=== PATIENT | male | born 1945 | race Caucasian/White ===

== ENCOUNTER 2023-07-21 18:33 | Emergency (ER) | payer MEDICARE, SELFPAY ==
--- NOTE | ~2023-07-21 | XR_ITS ---
EXAMINATION: XR thoracic spine 3V, XR hip RT 2V w AP pelvis, XR lumbar spine 2-3V DATE: 07/21/2023 19:41 (accession [id number]), 07/21/2023 19:41 (accession [id number]), 07/21 19:40 (accession [id number]) INDICATION: Right hip and back pain post fall TECHNIQUE: 1. One AP, lateral and lateral swimmer's views of the thoracic spine were obtained. 2. AP, lateral and coned-down lateral lumbosacral views of the lumbar spine were obtained. 3. AP view of the pelvis and AP and frog-leg lateral views of the right hip were obtained. COMPARISON: None. FINDINGS: Thoracic and lumbar spine: Ankylosis with bridging osteophytes throughout the spine beginning in at least the mid cervical spine and extending to the sacrum which could be related to either diffuse idiopathic skeletal hyperostosi s (DISH) or ankylosing spondylitis. There is bone graft cage at the fused L5-S1 disc space and a lef t-sided vertical hong and pedicle screw fixation at L4-L5. Alignment is normal. No fracture identified . 3 calcifications measuring up to 5 mm projecting over the left kidney suspicious for nephrolithiasi s. Pelvis and right hip: Alignment is normal. There is suggestion of partial ankylosis at the bilateral sacroiliac joints. Sac ral arches are intact. No fracture. Mild osteoarthritis at the bilateral hips. A few phleboliths in t he pelvis. IMPRESSION: 1. 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 No evident fracture. 2. Mild bilateral hip osteoarthritis. No acute osseous abnormality in the pelvis. 3. Likely left nephrolithiasis. Reviewed, dictated and finalized at location A. IMPRESSION: 1. 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 No evident fracture. 2. Mild bilateral hip osteoarthritis. No acute osseous abnormality in the pelvi s. 3. Likely left nephrolithiasis. IMPRESSION: 1. 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 No evident fracture. 2. Mild bilateral hip osteoarthritis. No acute osseous abnormality in the pelvi s. 3. Likely left nephrolithiasis.
[2023-07-21 18:39] VITALS: BP 157/89; PULSE 76; RESP 17; TEMP 37.1; O2SAT 98
--- NOTE | 2023-07-21 18:39 | PC.NURSE ---
patient states he is on metformin and atorvastatin daily but unsure of mg's
[2023-07-21] MEDS: ACETAMINOPHEN 500 MG TABLET 1000 MG PO (19:21)
--- NOTE | 2023-07-21 19:25 | ED.GENADULT ---
HPI - General Adult General Chief complaint: Fall Stated complaint: fall Time Seen by Provider: 07/21/23 19:05 History of Present Illness HPI narrative: Mac presented to the ED after a fall off of the first step of a ladder. He thought he was on the last rung but missed it and fell on his right hip and back. He does not believe he his his head or neck. He denies any pain in his neck or head. He is having pain in his right hip and mid back that is worse while standing. NO loss of bowel/bladder control, numbness, tingling or weakness in the lower extremities. Related Data Allergies Allergy/AdvReac Type Severity Reaction Status Date / Time No Known Allergies Allergy Verified 07/21/23 18:38 Review of Systems Review of Systems: All systems reviewed & are unremarkable except as noted in HPI and below Exam Const: General: healthy appearing and no acute distress Nutritional Appearance: well nourished Orientation/consciousness: patient oriented x3 HENMT: Head: normal to inspection Ears: external ears normal Eyes: Conjunctivae: conjunctivae normal Pupils: Equal, round and reactive pupils present Neck: Neck: normal visual inspection Other: No midline tenderness. Normal active ROM in the neck without any pain. Chest: Chest palpation & inspection: normal inspection of the chest Resp: Effort & Inspection: normal respiratory effort Cardio: Rate: regular rate Rhythm: regular rhythm Back/Spine/Pelvis: Other: No tenderness of the midline spine. No bruising or deformity. Skin: General skin exam: normal color Neuro: General: patient oriented x3 and moves all extremities Cranial nerves: Yes Nystagmus not present Extrem: General: normal to inspection Psych: Mental Status: mental status grossly normal Affect: normal affect Course Course Emergency Course: Ordered APAP for pain and radiographs EXAMINATION: XR thoracic spine 3V, XR hip RT 2V w AP pelvis, XR lumbar spine 2-3V DATE: 07/21/2023 19:41 (accession [id number]), 07/21/2023 19:41 (accession [id number]), 07/21/2023 19:40 (accession [id number]) INDICATION: Right hip and back pain post fall TECHNIQUE: 1. One AP, lateral and lateral swimmer's views of the thoracic spine were obtained. 2. AP, lateral and coned-down lateral lumbosacral views of the lumbar spine were obtained. 3. AP view of the pelvis and AP and frog-leg lateral views of the right hip were obtained. COMPARISON: None. FINDINGS: Thoracic and lumbar spine: Ankylosis with bridging osteophytes throughout the spine beginning in at least the mid cervical spine and extending to the sacrum which could be related to either diffuse idiopathic skeletal hyperostosis (DISH) or ankylosing spondylitis.? There is bone graft cage at the fused L5-S1 disc space and a left-sided vertical hong and pedicle screw fixation at L4-L5. Alignment is normal. No fracture identified. 3 calcifications measuring up to 5 mm projecting over the left kidney suspicious for nephrolithiasis. Pelvis and right hip: Alignment is normal. There is suggestion of partial ankylosis at the bilateral sacroiliac joints. Sacral arches are intact. No fracture. Mild osteoarthritis at the bilateral hips. A few phleboliths in the pelvis. IMPRESSION: 1. 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 No evident fracture. 2. Mild bilateral hip osteoarthritis. No acute osseous abnormality in the pelvis. 3. Likely left nephrolithiasis. Vital Signs Vital signs: Vital Signs Temperature 98.8 F 07/21/23 18:39 Pulse Rate 76 07/21/23 18:39 Respiratory Rate 17 07/21/23 18:39 Blood Pressure 157/89 H 07/21/23 18:39 Pulse Oximetry 98 07/21/23 18:39 Oxygen Delivery Room Air 07/21/23 18:39 Temperature 98.8 F 07/21/23 18:39 Pulse Rate 76 07/21/23 18:39 Respiratory Rate 17 07/21/23 18:39 Blood Pr
[2023-07-21 20:19] VITALS: BP 145/93; PULSE 70; RESP 16; TEMP 36.4; O2SAT 98
== END 2023-07-21 20:20 | disposition home or self-care (01) ==
PROVIDERS: Emergency Provider Family Medicine; PCP Family Medicine
DX: M43.20 Fusion of spine, site unspecified (principal); W11.XXXA Fall on and from ladder, initial encounter
CPT/HCPCS: 72072; 72100; 73502; 99284

== ENCOUNTER 2023-12-08 09:46 | Outpatient (CLI) | payer MEDICARE, SELFPAY ==
[2023-12-08 13:18] LABS: Hemoglobin A1C 6.5 % (<5.7)
[2023-12-08 13:35] LABS: Creatinine Urine 122.58 mg/dL (40-278); MALB Creatinine Ratio 10.6 mg/g (0-30); Microalbumin Urine Random < 13.0 mg/L
[2023-12-08 13:47] LABS: Alanine Aminotransferase 44 U/L (16-63); Alkaline Phosphatase 105 U/L (46-116); Anion Gap 6 mmol/L (8-16); Aspartate Amino Transferase 16 U/L (15-37); Bilirubin,Total 0.9 mg/dL (0.00-1.00); Blood Urea Nitrogen 11 mg/dL (7-18); Calcium 9.1 mg/dL (8.5-10.1); Carbon Dioxide 32 mmol/L (21-32); Chloride 102 mmol/L (98-108); Cholesterol 103 mg/dL (0-200); Estimated Glomerular Filt Rate > 60; Glucose 138 mg/dL (70-99); HDL Direct 36 mg/dL (40-60); LDL Cholesterol Calculated 47 mg/dL (<130); Osmolality Calculated 291 mOsm/kg (285-295); Potassium 4.3 mmol/L (3.5-5.1); Sodium 140 mmol/L (136-145); Total Protein 7.4 g/dL (6.4-8.2); Triglycerides 100 mg/dL (0-150)
== END 2023-12-08 09:47 | disposition home or self-care (01) ==
LOC: CHSLAB 09:47
PROVIDERS: PCP Family Medicine; Visit Provider Family Medicine
DX: E11.9 Type 2 diabetes mellitus without complications (principal)
CPT/HCPCS: 36415; 80053; 80061; 82043; 83036

== ENCOUNTER 2024-04-29 20:40 | Emergency (ER) | payer MEDICARE, SELFPAY ==
[2024-04-29] VITALS (18 sets, daily range): BP systolic 108–140; BP diastolic 52–97; PULSE 94–152; RESP 11–20; TEMP 36.2–36.7; O2SAT 94–97
--- NOTE | ~2024-04-29 | XR_ITS ---
EXAMINATION: XR chest 1V portable DATE: 04/29/2024 21:02 INDICATION: Chest pain. Tachycardia. TECHNIQUE: A single frontal view of the chest was obtained. COMPARISON: None. FINDINGS: There is mild atelectasis in left lower lung zone. No pleural effusion or pneumothorax. The heart size is normal. IMPRESSION: 1. Mild atelectasis in left lower lung zone. Reviewed, dictated and finalized at location E.
--- NOTE | 2024-04-29 20:44 | ECG_ITS ---
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 Measurements Intervals [place] Rate: 146 P: 0 AR: 0 QRS: 10 QRSD: 76 T: 68 QT: 263 QTc: 411 Interpretive Statements ATRIAL FIBRILLATION WITH RAPID VENTRICULAR RESPONSE NONSPECIFIC ST & T-WAVE ABNORMALITY ABNORMAL RHYTHM ECG No previous ECG available for comparison Electronically Signed On 04-30-2024 07:37:55 CDT by Manjeet Otero M.D.
--- NOTE | 2024-04-29 20:46 | ED.ARRPALP ---
HPI - Arrhythmia/Palpitations General Chief Complaint: Arrhythmia/Palpitations Stated Complaint: Palpitations Time Seen by Provider: 04/29/24 20:44 Source: patient and family Mode of arrival: ambulatory Limitations: no limitations History of Present Illness HPI narrative: Patient is a 79-year-old male with some palpitations all day today. He is working in the yard and started to have the palpitations. MD complaint: palpitations and irregular heart beat Onset (ago): day(s) (1) Duration: constant Severity: moderate Context: occurred during exertion Arrhythmia history: other ( None) Associated symptoms: other ( lightheaded and queasy GI symptoms today) Related Data Home Medications Medication Instructions Recorded Confirmed timolol 0.25 % eye drops 1 drp EACH EYE Q12H 12/08/23 04/29/24 tirzepatide 5 mg/0.5 mL 5 mg subcut WEEKLY 04/29/24 04/29/24 subcutaneous pen injector (Mounjaro) Allergies Allergy/AdvReac Type Severity Reaction Status Date / Time No Known Allergies Allergy Verified 12/08/23 07:32 Review of Systems Review of Systems: All systems reviewed & are unremarkable except as noted in HPI and below Constitutional: Constitutional: Reports no additional constitutional complaints Eyes: Eyes: Reports no additional eye complaints ENT: Reports system reviewed and no additional complaints, except as documented Cardiovascular: Cardiovascular: Reports no additional cardiovascular complaints Respiratory: Respiratory: Reports no additional respiratory complaints Gastrointestinal: Gastrointestinal: Reports no additional gastrointestinal complaints Genitourinary: Genitourinary: Reports no additional male genitourinary complaints Musculoskeletal: Musculoskeletal: Reports no additional musculoskeletal complaints Integumentary/Breasts: Skin/Breast: Reports system reviewed and no additional complaints, except as docu Neurologic: Reports system reviewed and no additional complaints, except as documented Psychiatric: Psychiatric: Reports no additional psychiatric complaints Endocrine: Endocrine: Reports no additional endocrine complaints Hematologic/Lymphatic: Hematologic/Lymphatic: Reports no additional hematologic/lymphatic complaints Allergic/Immunologic: Allergic/Immunologic: Reports no additional allergic/immunologic complaints [facility] Past Medical History Medical History Diabetes type 2, controlled Surgical History Surgical History Previous back surgery stenosis and blow disc Family History Family History Mother Glaucoma Lung cancer Father Glaucoma Acute myocardial infarction Social History Social History Smoking status: Never smoker Alcohol intake: never Substance use: never Exam Const: General: healthy appearing Nutritional Appearance: well nourished Orientation/consciousness: patient oriented x3 HENMT: Head: normal to inspection Ears: external ears normal Face/Nose/Sinus: Normal external nose present Eyes: Conjunctivae: conjunctivae normal Pupils: Equal, round and reactive pupils present EOM: EOMs intact bilaterally Neck: Neck: normal visual inspection Chest: Chest palpation & inspection: normal inspection of the chest Resp: Effort & Inspection: normal respiratory effort and not labored Auscultation: clear to auscultation bilaterally Cardio: Rate: abnormal rate, not bradycardic and tachycardic Rhythm: abnormal rhythm and abnormal rhythm Heart sounds: no murmurs GI: Inspection: non-distended GI Palp: Yes Soft to palpation, No Tenderness to palpation present (GI) and No Guarding due to palpation present (GI) Auscultation: normal bowel sounds : General: Yes bladder normal to palpation Back/Spine/Pelvis: Back: no CVA tenderness Ski
[2024-04-29] MEDS: dilTIAZem HCl INJ 25 MG/5 ML VIAL 10 MG IV PUSH (21:09)
--- NOTE | 2024-04-29 21:16 | PC.NURSE ---
ERP spoke c pt about hx and new onset of Afib dx. Pt agreeable to transfer to [place] if needed.
[2024-04-29 21:17] LABS: Basophils Absolute Auto 0.03 K/mm3 (0.00-0.10); Basophils Percent Auto 0.5 % (0.0-1.0); Eosinophils Absolute Auto 0.11 K/mm3 (0.02-0.50); Eosinophils Percent Auto 1.8 % (1.0-6.0); Hematocrit 45.4 % (37.0-46.0); Hemoglobin 15.7 g/dL (12.4-15.3); Immature Granulocyte Absolute 0.02 K/mm3 (0.00-0.00); Immature Granulocyte Percent A 0.3 % (0.0-0.0); Lymphocytes Absolute Auto 1.81 K/mm3 (1.10-4.50); Mean Corpuscular HGB Conc 34.6 g/dL (32-36); Mean Corpuscular Hemoglobin 34.8 pg (27.0-31.0); Mean Corpuscular Volume 100.7 fL (78.0-102.0); Mean Platelet Volume 9.7 fl (8.7-11.0); Monocytes Absolute Auto 0.56 K/mm3 (0.10-0.90); Monocytes Percent Auto 9.3 % (2.0-11.0); Neutrophils Percent Auto 58.1 % (50.0-70.0); Platelet Count Result 209 K/mm3 (150-420); Red Blood Count 4.51 M/mm3 (4.70-6.10); Red Cell Distribution Width 12.3 % (11.6-14.4)
[2024-04-29 21:30] LABS: INR 0.9; Prothrombin Time 10.4 Seconds (9.50-12.1)
[2024-04-29 21:38] LABS: Alanine Aminotransferase 29 U/L (16-63); Albumin Level 3.7 g/dL (3.4-5.0); Alkaline Phosphatase 102 U/L (46-116); Anion Gap 10 mmol/L (4-12); Aspartate Amino Transferase 19 U/L (15-37); Bilirubin,Total 0.6 mg/dL (0.00-1.00); Blood Urea Nitrogen 16 mg/dL (7-18); Calcium 8.8 mg/dL (8.5-10.1); Carbon Dioxide 27 mmol/L (21-32); Chloride 104 mmol/L (98-108); Estimated CRCL calculation 58 ml/min; Estimated Glomerular Filt Rate > 60; Glucose 213 mg/dL (70-99); NT Pro B Type Natriuretic Pept 347 pg/mL (0-450); Osmolality Calculated 299 mOsm/kg (285-295); Potassium 3.9 mmol/L (3.5-5.1); Sodium 141 mmol/L (136-145); Total Protein 7.2 g/dL (6.4-8.2)
[2024-04-29] MEDS: ENOXAPARIN 100 MG/ML SYRINGE SUB-Q (22:24)
[2024-04-29] MEDS: METOPROLOL TARTRATE 50 MG TAB 12.5 MG PO (22:42)
--- NOTE | 2024-04-29 23:01 | PC.NURSE ---
Pts daughter Yelena contact and given Rm assignment at [facility] per pt request. Pt remains stable, VSS, Monitor continues to show Afib, HR 108.
== END 2024-04-29 23:20 | disposition short-term general hospital (02) ==
PROVIDERS: Emergency Provider Emergency Medicine; PCP Family Medicine
DX: I48.91 Unspecified atrial fibrillation (principal); R00.2 Palpitations; E11.9 Type 2 diabetes mellitus without complications; Z79.85 Long-term (current) use of injectable non-insulin antidiabetic drugs
CPT/HCPCS: 36415; 71045; 80053; 83735; 83880; 84484; 85025; 85610; 85730; 93005; 96372; 96374; 99285; A9270; J1650

== ENCOUNTER 2024-04-30 00:13 | Observation (INO) | payer MEDICARE, SELFPAY ==
--- NOTE | 2024-04-29 23:52 | PC.NURSE ---
This patient, Mac Dejesus, was admitted to -. Patient/family oriented to hospital policies and general routines including ID bracelet, bed and alarms, visiting hours, pain management, procedures, bathroom and other care routines, personal items, smoking policy, room service/diet, and visiting hours. Information on how to activate the Rapid Response Team has been discussed. Patient/Family are encouraged to report perceived risks to care and to ask questions if they do not understand what they are told or what they should do.
[2024-04-30] VITALS (22 sets, daily range): BP systolic 100–117; BP diastolic 56–66; PULSE 68–111; RESP 15–19; TEMP 36.3–37; O2SAT 95–98; BMI 33.5
--- NOTE | 2024-04-30 | ECHO_ITS ---
Patient Info Name: Mac Dejesus Age: 79 years : 1945 Gender: Male Ht: 69 in Wt: 226 lbs BSA: 2.27 m2 HR: 68 bpm BP: 103 / 64 mmHg Heart Rhythm: Atrial Fibrillation Technical Quality: Fair Exam Date: 04/30/2024 8:19 AM Exam Location: Echo Lab Patient Status: Outpatient Admit Date: 04/30/2024 Staff Ordering Physician: Bebe Vega DO Custodial Foreman: Jannie Lynne RDCS Attending Provider: Bebe Vega DO Referring Physician: Gary CRUZ; Exam Type: CA echo dop color flow w con Study Info Indications - afib Complete two-dimensional, color flow and Doppler transthoracic echocardiogram is performed with contrast to opacify the left ventricle and to improve the deliniation of the left ventricle endocardial borders. Contrast/Agitated Saline Contrast/Ag. Saline: Definity Amount: 2.00 ml Administered By: Jannie Lynne RDCS Existing IV Access: Yes IV Access Condition: patent with no signs of infiltration Summary 1. Definity contrast injected to improve visualization. 2. Normal left ventricular size with good systolic function ejection fraction 60-65%. 3. Left atrial enlarged. 4. No significant valvular dysfunction. 5. Atrial fibrillation. Left Ventricle Left ventricular chamber dimension is normal. Left ventricular systolic function is normal, estimated at 60-65%. Right Ventricle Right ventricular chamber dimension is normal. Left Atria Left atrial chamber dimension is moderately enlarged. Right Atria Right atrial chamber dimension is mildly enlarged. Aortic Valve The aortic valve is trileaflet. There is mild aortic valve sclerosis. Pulmonic Valve The pulmonic valve is not well visualized. Mitral Valve The mitral valve has normal leaflets. Tricuspid Valve The tricuspid valve leaflets are normal. Pericardium/Pleural The pericardium appears normal. Aorta The aortic root size at the sinus of Valsalva is normal. Left Ventricular Outflow Tract Name Value Normal LVOT 2D LVOT Diameter 2.03 cm LVOT Doppler LVOT Peak Gradient 4 mmHg LVOT Mean Gradient 2 mmHg LVOT VTI 18.56 cm LVOT VTI/AV VTI Ratio 0.95 LVOT Stroke Volume 60.05 ml LVOT CO 4.56 l/min LVOT CI 2.01 L/min/m2 Pulmonic Valve Name Value Normal RVOT Doppler RVOT Peak Gradient 1 mmHg PV Doppler PV Peak Gradient 2 mmHg Mitral Valve Name Value Normal MV Doppler
--- NOTE | 2024-04-30 00:22 | PM.IMHP ---
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 On arrival to the ER patient was found to be in AFib with rates in the 130s to 150s. Patient received 1 dose of IV Cardizem and heart rate came down to the low 100s. The patient states that he has had history of his heart occasionally fluttering. He always thought it was due to his stomach being a little bit of upset because that is where most of his discomfort is is in the epigastric area. He does not describe it is any pain he just states that it feels like his stomach is fluttering around. He has not had any associated chest pain or shortness of breath. Today what made him consider coming in was a sensation of accompanying lightheadedness. He reported that his symptoms had started earlier in the day in were brief. When he checked his pulse in front of his ear he felt like his pulse was beating regularly so he was not worried. He went on to plan some wolf and work in the garden. That evening after he had went inside and was sitting down watching TV he became lightheaded and had increased sensation of fluttering. When he checked his pulse at that he noticed that his heart rate was ?all over the place.? He reports that he had similar episode like this when he was in his 40s and had a stress test that was negative. It sounds as if he may have been having intermittent episodes of fluttering that were brief in nature over the last weeks to months as well. He denies any orthopnea or paroxysmal nocturnal dyspnea. He stated that they wanted to put him on a CPAP due to his history of snoring. He knew people who did not like it so he did not want to go through the hassle. Subsequently he bought a bed that is adjustable and his snoring has resolved as long as he sits upright. He denies daytime fatigue or sleepiness. He has not had any lower extremity swelling. He reports that his weight is been stable around 220 lb. His glucoses are well controlled in his fasting glucoses are usually below 120. He only drinks 1 caffeinated soda a day. He does not drink coffee and denies any alcohol use or tobacco use. He is not on any antihypertensives at home. He reports history of what sounds like upper GI bleed approximately 20 years ago associated with medication use. He has since had routine colonoscopy about 5 years ago with no significant findings. He denies any recurrence of melena or hematochezia. Hemoglobin from outside facility was normal Review of Systems Review of Systems: 12 systems were reviewed with pertinent positives and negatives per HPI. Except as documented in the HPI, all other systems were reviewed and are negative. [facility] Past Medical History Medical History (Updated 04/30/24 @ 04:05 by Bebe Vega DO) Diabetes type 2, controlled A1c of 6.5% 11/2023 DISH (diffuse idiopathic skeletal hyperostosis) Dyslipidemia Glaucoma Kidney stones Obesity Obstructive sleep apnea Peripheral neuropathy With numbness low the left knee and numbness of the lateral toes on the right following spinal surgery Surgical History Surgical History (Updated 04/30/24 @ 03:50 by Bebe Vega DO) Previous back surgery stenosis and ruptured disc Status post cataract extraction of both eyes with insertion of intraocular lens (~12/2023) Family History Family History (Updated 04/30/24 @ 03:55 by Bebe Vega DO) Mother , Age greater than 75 Lung cancer Glaucoma Father , Age greater than 80 Acute myocardial infarction Glaucoma Mesothelioma Son , at age greater than 50 Down's syndrome Heart disease Pneumonia Social History Social History (Updated 04/30/24 @ 0
[2024-04-30] MEDS: SODIUM CHLORIDE 0.9% IV 1,000 ML 100 ML IV CONT ×3 (00:50→22:13)
--- NOTE | 2024-04-30 02:44 | ECG_ITS ---
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 Measurements Intervals [place] Rate: 66 P: 0 TX: 0 QRS: -16 QRSD: 91 T: 13 QT: 380 QTc: 401 Interpretive Statements ATRIAL FIBRILLATION MINIMAL VOLTAGE CRITERIA FOR LVH, CONSIDER NORMAL VARIANT [MEETS CRITERIA IN ONE OF: R(aVL), S(V1), R(V5), R(V5/V6)+S(V1)] ABNORMAL RHYTHM ECG Compared to ECG 04/29/2024 20:55:18 VENTRICULAR RESPONSE TO ATRIAL FIB IS MORE CONTROLLED Electronically Signed On 04-30-2024 07:35:29 CDT by Manjeet Otero M.D.
[2024-04-30] MEDS: ACETAMINOPHEN 325 MG TABLET 650 MG PO ×2 (03:20→09:38)
[2024-04-30 03:29] LABS: Basophils Percent Auto 0.4 % (0.2-1.2); Eosinophils Absolute Auto 0.1 K/mm3 (0-0.3); Eosinophils Percent Auto 1.5 % (0-4.4); Hematocrit 46.5 % (42.0-52.0); Hemoglobin 15.9 g/dL (14.0-18.0); Immature Granulocyte Absolute 0.02 K/mm3 (0.00-0.031); Immature Granulocyte Percent A 0.4 % (0-0.5); Lymphocytes Absolute Auto 1.89 K/mm3 (0.9-3.2); Lymphocytes Percent Auto 34.3 % (18.3-44.2); Mean Corpuscular HGB Conc 34.2 g/dl (32-36); Mean Corpuscular Hemoglobin 34.7 pg (26-34); Mean Corpuscular Volume 101.5 fl (80-100); Mean Platelet Volume 9.9 fl (7.4-10.4); Monocytes Absolute Auto 0.6 K/mm3 (0.1-0.6); Monocytes Percent Auto 10.3 % (2.6-8.5); Neutrophils Absolute Auto 2.9 K/mm3 (1.3-6.7); Neutrophils Percent Auto 53.1 % (45.5-73.1); Platelet Count Result 195 k/mm3 (150-375); Red Blood Count 4.58 M/mm3 (4.6-6.20); Red Cell Distribution Width 12.8 % (11.5-14.5); White Blood Count 5.5 K/mm3 (4.5-10.0)
[2024-04-30 03:59] LABS: Anion Gap 3 mmol/L (4-12); Blood Urea Nitrogen 16 mg/dL (9-20); Calcium 9.4 mg/dL (8.4-10.2); Carbon Dioxide 32 mmol/L (22-30); Chloride 105 mmol/L (98-107); Estimated CRCL calculation 70 ml/min; Estimated Glomerular Filt Rate > 60; Glucose 119 mg/dL (65-110); Magnesium 2.1 mg/dL (1.6-2.3); Sodium 140 mmol/L (137-145)
[2024-04-30 04:10] LABS: Troponin I < 0.012 ng/mL (0.000-0.034)
[2024-04-30 06:22] LABS: Troponin I 0.014 ng/mL (0.000-0.034)
[2024-04-30] MEDS: PERFLUTREN LIPID MICROSPHERES 1.5 ML VIAL DILUTED TO 10 ML TOTAL VOLUME IV PUSH (08:00)
[2024-04-30 09:16] LABS: Glucose Point of Care 116 mg/dl (65-105)
[2024-04-30] MEDS: METOPROLOL TARTRATE 12.5 MG TABLET PO ×2 (09:21→20:32)
[2024-04-30] MEDS: TIMOLOL MALEATE 0.25% OP SOLN 5 ML BOTTLE 1 DROP EACH EYE ×2 (09:21→20:33)
[2024-04-30] MEDS: ATORVASTATIN 40 MG TABLET BY MOUTH (09:23)
--- NOTE | 2024-04-30 09:33 | PM.IMPN ---
Progress Note: A&P Assessment and Plan (1) New onset a-fib: Code(s): I48.91 - Unspecified atrial fibrillation Status: Acute (2) Diabetes type 2, controlled: Qualifiers: Diabetes mellitus complication status: without complication Diabetes mellitus intermediate manager insulin use: without half-way use Qualified Code(s): E11.9 - Type 2 diabetes mellitus without complications Code(s): E11.9 - Type 2 diabetes mellitus without complications Status: Acute (3) Obstructive sleep apnea: Code(s): G47.33 - Obstructive sleep apnea (adult) (pediatric) Status: Acute Plan new onset AFib Unclear etiologies Received Cardizem IV push, her Toprol p.o. chads Vasc score is elevated at 3 received Lovenox 1 milligram/kilos x1 pending echo report, TSH the 4.55 pending free T4 now patient has sinus rhythm The consult spine nurse management per spine nurse untreated obstructive sleep apnea which may be playing a part in his increased risk of AFib. He is not interested in CPAP and states that he does not snore as long as he sleeps sitting up which he does at home. Will resume the patient's home statin therapy and timolol eyedrops. Has Tuesday are was on hold. well-controlled diabetes continue low-dose sliding scale insulin while hospitalized. Will order Accu-Cheks a.c. HS and hypoglycemia protocol as needed. Patient's home medications were reconciled and reviewed including [id number] supplements. The patient has advanced directives in place please see social history for further details Subjective Date/time seen: 04/30/24 09:33 Interval history: I saw and examined the patient. patient denies chest pain, palpitation, shortness of breath headache, lightheadedness, focal weakness. Exam Narrative: GENERAL: Pleasant, in no acute distress. Well-nourished. - EYES: EOMI. Anicteric. - HENT: Moist mucous membranes. - LUNGS: Clear to auscultation bilaterally, no wheezing, rhonchi, or rales. - CARDIOVASCULAR: Regular rate and rhythm. No murmur. No JVD. - ABDOMEN: Soft, non-tender and non-distended. No palpable masses. - EXTREMITIES: No edema. Peripheral pulses 2+. Non-tender. - NEUROLOGIC: No focal neurological deficits. CN II-XII grossly intact. - PSYCHIATRIC: Awake, Alert and oriented x 3. Appropriate mood and affect. - SKIN: No rashes or lesions. Warm. - LYMPH: No cervical lymphadenopathy. Objective Data Vital Signs Vital Signs: Vital Signs - 24 hr 04/30/24 00:00 04/30/24 00:06 04/30/24 00:13 Temperature 97.3 F L Pulse Rate 111 H 83 Respiratory Rate 19 Blood Pressure 117/64 Pulse Oximetry 98 Oxygen Delivery Room Air 04/30/24 02:00 04/30/24 02:13 04/30/24 04:00 Temperature 97.8 F Pulse Rate 73 69 75 Respiratory Rate 18 Blood Pressure 104/66 Pulse Oximetry 96 Oxygen Delivery 04/30/24 04:35 04/30/24 05:20 04/30/24 06:00 Temperature 97.8 F Pulse Rate 73 68 Respiratory Rate 18 Blood Pressure 103/64 Pulse Oximetry 95 Oxygen Delivery Room Air 04/30/24 07:40 04/30/24 09:21 Temperature 97.6 F Pulse Rate 77 80 Respiratory Rate 16 Blood Pressure 117/65 Pulse Oximetry 98 Oxygen Delivery Intake/Output Intake/Output: Intake & Output 04/27/24 04/28/24 04/29/24 04/30/24 23:59 23:59 23:59 23:59 Intake Total 653 Balance 653 Meds/Results Medications: Active Medications Generic Name Dose Route Start Last Admin Trade Name Freq PRN Reason Stop Dose Admin Acetaminophen 650 mg 04/30/24 00:13 04/30/24 03:20 Acetaminophen 325 Mg Tablet PO 650 mg Q4H PRN Administration Mild Pain (1-3) or Fever Hydrocodone Bitart/Acetaminophen 1 tab 04/30/24 02:44 Hydrocodone/Acetaminophen (*Crx) 5-325 Mg Tablet PO Q8H PRN Pain 7-10 Al Hydrox/Mg Hydrox/Simethicone 30 ml 04/30/24 00:13 Mag Hydrox/Al Hydrox/Simeth 30 Ml Udc PO QID PRN Dyspepsia Atorvastatin
--- NOTE | 2024-04-30 10:09 | PM.CNCAR ---
Assessment and Plan Assessment and plan (1) New onset a-fib: Code(s): I48.91 - Unspecified atrial fibrillation Status: Acute Assessment and Plan: New diagnosis. Chronicity is unknown, but began having symptoms yesterday. Currently rate controlled with a low dose of metoprolol. I discussed the diagnosis of atrial fibrillation with the patient including pathophysiology, risk factors, management strategies, risks/complications. For now, we will continue to pursue a rate control strategy. He has a CHADs Vasc score of 3 (age, HTN), therefore anticoagulation is indicated. Will start him on apixaban 5mg b.i.d. Monitor for any signs of bleeding. Echo has been ordered and is pending. TSH normal. Will check apnea link tonight (2) Obstructive sleep apnea: Code(s): G47.33 - Obstructive sleep apnea (adult) (pediatric) Status: Acute Assessment and Plan: States he used to snore but no longer snores since getting an adjustable bed. States he will not wear CPAP even if he is found to have ZIGGY. Discussed importance of treatment of ZIGGY as it related to managing AF. Will check apnea link tonight. (3) Diabetes type 2, controlled: Qualifiers: Diabetes mellitus mcfp insulin use: without mcfp use Diabetes mellitus complication status: without complication Qualified Code(s): E11.9 - Type 2 diabetes mellitus without complications Code(s): E11.9 - Type 2 diabetes mellitus without complications Status: Acute Assessment and Plan: Management per hospitalist (4) Hypertension: Code(s): I10 - Essential (primary) hypertension Status: Acute Assessment and Plan: At goal. History of Present Illness History of Present Illness Consult date/time: 04/30/24 10:09 Requesting physician: Bebe Vega DO Consult reason: atrial fibrillation Reason For Visit: New onset AF Narrative: Mac Dejesus is a 79-year-old male with type 2 diabetes mellitus presented to the hospital with a chief complaint of palpitations. Patient began experiencing palpitations yesterday morning around 11:00 a.m.. He came to the emergency department and was found to be in atrial fibrillation. He was initially treated with IV diltiazem and now has been placed on a small dose of metoprolol. He is rate controlled currently. He denies feeling any chest pain, shortness of breath. Denies any swelling, syncope, orthopnea. He is feeling much better this morning now that his heart rate is controlled and he currently has no complaints. Review of Systems Review of Systems: All systems reviewed & are unremarkable except as noted in HPI and below PMFSH Past Medical History Medical History Diabetes type 2, controlled A1c of 6.5% 11/2023 DISH (diffuse idiopathic skeletal hyperostosis) Dyslipidemia Glaucoma Kidney stones Obesity Obstructive sleep apnea Peripheral neuropathy With numbness low the left knee and numbness of the lateral toes on the right following spinal surgery Surgical History Surgical History Previous back surgery stenosis and ruptured disc Status post cataract extraction of both eyes with insertion of intraocular lens (~12/2023) Family History Family History Mother , Age greater than 75 Lung cancer Glaucoma Father , Age greater than 80 Acute myocardial infarction Glaucoma Mesothelioma Son , at age greater than 50 Down's syndrome Heart disease Pneumonia Social History Social History Social History: Patient lives with his of 58 years. They raised 3 children 2 of which are still living. Patient is a lifelong nonsmoker and does not drink alcohol. He is does not drink caffeine to excess. He is a
[2024-04-30 11:30] LABS: Glucose Point of Care 113 mg/dl (65-105)
--- NOTE | 2024-04-30 11:40 | IVDEFINITY ---
Prior to administration of IV Definity the patient was educated on the risks and benefits of the imaging enhancing agent including potential adverse side effects. The patient verbalized understanding. Allergies were verified. No exclusion criteria were identified and at least one of the following inclusion criteria were met: 1) physician request, 2) patient technically difficult to image (per the [place] [employer] guidelines of two or more segments not discernable within the apical view), or 3) questionable left ventricular function. ?
[2024-04-30 16:07] LABS: Total Triiodothyronine (T3) 1.33 NG/ML (0.97-1.69)
[2024-04-30 16:44] LABS: Glucose Point of Care 137 mg/dl (65-105)
[2024-04-30 20:27] LABS: Glucose Point of Care 130 mg/dl (65-105)
[2024-04-30] MEDS: APIXABAN 5 MG TABLET PO (20:32)
[2024-05-01] VITALS (11 sets, daily range): BP systolic 124–130; BP diastolic 60–68; PULSE 63–75; RESP 16–18; TEMP 36.2–36.4; O2SAT 96–100
--- NOTE | 2024-05-01 07:43 | PM.PNCARD ---
Progress Note: A&P Assessment and Plan (1) New onset a-fib: Code(s): I48.91 - Unspecified atrial fibrillation Status: Inactive Assessment and Plan: New diagnosis. Chronicity is unknown, but began having symptoms yesterday. Currently rate controlled with a low dose of metoprolol. I discussed the diagnosis of atrial fibrillation with the patient including pathophysiology, risk factors, management strategies, risks/complications. For now, we will continue to pursue a rate control strategy. He has a CHADs Vasc score of 3 (age, HTN), therefore anticoagulation is indicated. Will start him on apixaban 5mg b.i.d. Monitor for any signs of bleeding. Echo shows normal LVEF, left atrial enlargement. No significant valvular dysfunction. OK for discharge today from a cardiac standpoint. (2) Obstructive sleep apnea: Code(s): G47.33 - Obstructive sleep apnea (adult) (pediatric) Status: Acute Assessment and Plan: AHI 45. Will need outpatient sleep study (3) Diabetes type 2, controlled: Qualifiers: Diabetes mellitus complication status: without complication Diabetes mellitus snf insulin use: without snf use Qualified Code(s): E11.9 - Type 2 diabetes mellitus without complications Code(s): E11.9 - Type 2 diabetes mellitus without complications Status: Acute Assessment and Plan: Management per hospitalist (4) Hypertension: Code(s): I10 - Essential (primary) hypertension Status: Acute Assessment and Plan: At goal. Subjective Date/time seen: 05/01/24 07:43 Interval history: Cardiology follow up for atrial fibrillation Date of service 05/01/2024: Feeling well today, remains rate controlled. Review of Systems Review of Systems: All systems reviewed & are unremarkable except as noted in HPI and below Exam Const: General: comfortable, no acute distress, alert and awake Orientation/consciousness: patient oriented x3 HENMT: Head: normal to inspection Eyes: General: appearance normal, both eyes and all related structures Pupils: Equal, round and reactive pupils present Neck: Neck: normal visual inspection, supple and no JVD Carotids: normal carotid upstroke Resp: Effort & Inspection: normal respiratory effort Auscultation: clear to auscultation bilaterally Cardio: Rate: regular rate Rhythm: abnormal rhythm irregularly irregular Heart sounds: S1 normal heart sound present, S2 normal heart sound present and no murmurs GI: Auscultation: normal bowel sounds Skin: General skin exam: normal color Neuro: General: patient oriented x3 Cranial nerves: Yes Equal, round and reactive pupils present Extrem: General: normal to inspection Psych: Appearance: grossly normal Mental Status: mental status grossly normal Objective Data Vital Signs Vital Signs: Vital Signs - 24 hr 04/30/24 09:21 04/30/24 08:00 04/30/24 11:18 Temperature 36.6 C Pulse Rate 80 78 75 Respiratory Rate 15 Blood Pressure 113/61 Pulse Oximetry 97 Oxygen Delivery 04/30/24 10:00 04/30/24 12:00 04/30/24 12:00 Temperature Pulse Rate 101 H 76 Respiratory Rate Blood Pressure Pulse Oximetry Oxygen Delivery Room Air 04/30/24 16:06 04/30/24 14:00 04/30/24 16:00 Temperature 37.0 C Pulse Rate 75 79 Respiratory Rate 16 Blood Pressure 100/59 L Pulse Oximetry 95 Oxygen Delivery Room Air 04/30/24 16:00 04/30/24 18:00 04/30/24 19:52 Temperature 36.6 C Pulse Rate 77 79 77 Respiratory Rate 18 Blood Pressure 106/56 L Pulse Oximetry 95 Oxygen Delivery 04/30/24 20:32 04/30/24 20:00 04/30/24 20:00 Temperature Pulse Rate 77 76 Respiratory Rate Blood Pressure Pulse Oximetry Oxygen Delivery Room Air 04/30/24 22:04 04/30/24 22:00 05/01/24 00:00 Temperature 36.6 C Pulse Rate 73 73 Respiratory Rate 18 Blood Pressure 114/59 L Pulse Oximetry 98 Oxygen Deliv
[2024-05-01 08:36] LABS: Glucose Point of Care 125 mg/dl (65-105)
--- NOTE | 2024-05-01 09:12 | PM.IMPN ---
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 chads Vasc score is elevated at 3 received Lovenox 1 milligram/kilos x1 echo report, 1. Definity contrast injected to improve visualization. 2. Normal left ventricular size with good systolic function ejection fraction 60-65%. 3. Left atrial enlarged. 4. No significant valvular dysfunction. 5. Atrial fibrillation.TSH the 4.55 pending free T4 now patient has sinus rhythm The consult member of the legislative council management per member of the legislative council cardiology recommends continue metoprolol 12.5 mg q.12 hours p.o., continue Eliquis 5 mg b.i.d. p.o. currently patient has sinus rhythm member of the legislative council recommend discharge patient and we will see patient in the office untreated obstructive sleep apnea which may be playing a part in his increased risk of AFib. He is not interested in CPAP and states that he does not snore as long as he sleeps sitting up which he does at home. resume the patient's home statin therapy and timolol eyedrops. well-controlled diabetes continue low-dose sliding scale insulin while hospitalized. Will order Accu-Cheks a.c. HS and hypoglycemia protocol as needed. resume home medication on discharge Subjective Date/time seen: 05/01/24 09:12 Interval history: I saw and examined the patient today, patient denies chest pain, palpitation, , abdomen pain, nausea vomiting diarrhea dysuria. Patient afeb blood pressure stable Exam Narrative: GENERAL: Pleasant, in no acute distress. Well-nourished. - EYES: EOMI. Anicteric. - HENT: Moist mucous membranes. - LUNGS: Clear to auscultation bilaterally, no wheezing, rhonchi, or rales. - CARDIOVASCULAR: Regular rate and rhythm. No murmur. No JVD. - ABDOMEN: Soft, non-tender and non-distended. No palpable masses. - EXTREMITIES: No edema. Peripheral pulses 2+. Non-tender. - NEUROLOGIC: No focal neurological deficits. CN II-XII grossly intact. - PSYCHIATRIC: Awake, Alert and oriented x 3. Appropriate mood and affect. - SKIN: No rashes or lesions. Warm. - LYMPH: No cervical lymphadenopathy. Objective Data Vital Signs Vital Signs: Vital Signs - 24 hr 04/30/24 09:21 04/30/24 11:18 04/30/24 10:00 Temperature 97.9 F Pulse Rate 80 75 101 H Respiratory Rate 15 Blood Pressure 113/61 Pulse Oximetry 97 Oxygen Delivery 04/30/24 12:00 04/30/24 12:00 04/30/24 16:06 Temperature 98.6 F Pulse Rate 76 75 Respiratory Rate 16 Blood Pressure 100/59 L Pulse Oximetry 95 Oxygen Delivery Room Air 04/30/24 14:00 04/30/24 16:00 04/30/24 16:00 Temperature Pulse Rate 79 77 Respiratory Rate Blood Pressure Pulse Oximetry Oxygen Delivery Room Air 04/30/24 18:00 04/30/24 19:52 04/30/24 20:32 Temperature 97.8 F Pulse Rate 79 77 77 Respiratory Rate 18 Blood Pressure 106/56 L Pulse Oximetry 95 Oxygen Delivery 04/30/24 20:00 04/30/24 20:00 04/30/24 22:04 Temperature 97.8 F Pulse Rate 76 73 Respiratory Rate 18 Blood Pressure 114/59 L Pulse Oximetry 98 Oxygen Delivery Room Air 04/30/24 22:00 05/01/24 00:00 05/01/24 00:00 Temperature Pulse Rate 73 70 Respiratory Rate Blood Pressure Pulse Oximetry Oxygen Delivery Room Air 05/01/24 02:00 05/01/24 04:00 05/01/24 04:49 Temperature 97.6 F Pu
[2024-05-01] MEDS: ACETAMINOPHEN 325 MG TABLET 650 MG PO (09:20)
[2024-05-01] MEDS: ATORVASTATIN 40 MG TABLET BY MOUTH (09:21)
[2024-05-01] MEDS: APIXABAN 5 MG TABLET PO (09:21)
[2024-05-01] MEDS: TIMOLOL MALEATE 0.25% OP SOLN 5 ML BOTTLE 1 DROP EACH EYE (09:22)
[2024-05-01] MEDS: METOPROLOL TARTRATE 12.5 MG TABLET PO (09:22)
[2024-05-01 09:49] LABS: Hematocrit 43.8 % (42.0-52.0); Mean Corpuscular HGB Conc 34.2 g/dl (32-36); Mean Corpuscular Hemoglobin 35.2 pg (26-34); Mean Corpuscular Volume 102.8 fl (80-100); Mean Platelet Volume 9.6 fl (7.4-10.4); Platelet Count Result 165 k/mm3 (150-375); Red Blood Count 4.26 M/mm3 (4.6-6.20); Red Cell Distribution Width 12.8 % (11.5-14.5); White Blood Count 5.3 K/mm3 (4.5-10.0)
[2024-05-01 10:01] LABS: Anion Gap 4 mmol/L (4-12); Blood Urea Nitrogen 13 mg/dL (9-20); Calcium 8.8 mg/dL (8.4-10.2); Carbon Dioxide 30 mmol/L (22-30); Chloride 106 mmol/L (98-107); Estimated CRCL calculation 71 ml/min; Estimated Glomerular Filt Rate > 60; Glucose 135 mg/dL (65-110); Potassium 4.1 mmol/L (3.4-5.0); Sodium 140 mmol/L (137-145)
[2024-05-01 12:04] LABS: Glucose Point of Care 128 mg/dl (65-105)
--- NOTE | 2024-05-01 13:38 | PM.DS ---
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 On arrival to the ER patient was found to be in AFib with rates in the 130s to 150s. Patient received 1 dose of IV Cardizem and heart rate came down to the low 100s. The patient states that he has had history of his heart occasionally fluttering. the following med issues have been addressed during hospitalization new onset AFib Unclear etiologies Received Cardizem IV push, her Toprol p.o. chads Vasc score is elevated at 3 received Lovenox 1 milligram/kilos x1 echo report, 1. Definity contrast injected to improve visualization. 2. Normal left ventricular size with good systolic function ejection fraction 60-65%. 3. Left atrial enlarged. 4. No significant valvular dysfunction. 5. Atrial fibrillation.TSH the 4.55 pending free T4 now patient has sinus rhythm The consult process stripper management per process stripper cardiology recommends continue metoprolol 12.5 mg q.12 hours p.o., continue Eliquis 5 mg b.i.d. p.o. currently patient has sinus rhythm process stripper recommend discharge patient and we will see patient in the office untreated obstructive sleep apnea which may be playing a part in his increased risk of AFib. He is not interested in CPAP and states that he does not snore as long as he sleeps sitting up which he does at home. resume the patient's home statin therapy and timolol eyedrops. well-controlled diabetes continue low-dose sliding scale insulin while hospitalized. Will order Accu-Cheks a.c. HS and hypoglycemia protocol as needed. resume home medication on discharge Time Spent with Patient Time attestation: Total time spent providing and/or coordinating discharge services: Exam Narrative: GENERAL: Pleasant, in no acute distress. Well-nourished. - EYES: EOMI. Anicteric. - HENT: Moist mucous membranes. - LUNGS: Clear to auscultation bilaterally, no wheezing, rhonchi, or rales. - CARDIOVASCULAR: Regular rate and rhythm. No murmur. No JVD. - ABDOMEN: Soft, non-tender and non-distended. No palpable masses. - EXTREMITIES: No edema. Peripheral pulses 2+. Non-tender. - NEUROLOGIC: No focal neurological deficits. CN II-XII grossly intact. - PSYCHIATRIC: Awake, Alert and oriented x 3. Appropriate mood and affect. - SKIN: No rashes or lesions. Warm. - LYMPH: No cervical lymphadenopathy. DS: Data Data Completed and Pending Labs on day of discharge: Labs from last 24 hours 05/01/24 05/01/24 05/01/24 11:39 09:43 08:05 WBC 5.3 RBC 4.26 L Hgb 15.0 Hct 43.8 MCV 102.8 H MCH 35.2 H MCHC 34.2 RDW 12.8 Plt Count 165 MPV 9.6 Sodium 140 Potassium 4.1 Chloride 106 Carbon Dioxide 30 Anion Gap 4 BUN 13 Creatinine 0.90 Estim Creat Clear Calc 71 Estimated GFR > 60 Glucose 135 H POC Capillary Glucose 128 H 125 H Calcium 8.8 Magnesium 2.0 Free T4 Total T3 04/30/24 04/30/24 04/30/24 19:54 16:01 05:49 WBC RBC Hgb Hct MCV MCH MCHC RDW Pl
== END 2024-05-01 14:43 | disposition home or self-care (01) ==
PROVIDERS: Admitting Provider Internal Medicine; PCP Family Medicine; Visit Provider Hospitalist
DX: I48.91 Unspecified atrial fibrillation (principal); E11.42 Type 2 diabetes mellitus with diabetic polyneuropathy; E78.5 Hyperlipidemia, unspecified; H40.9 Unspecified glaucoma; M48.10 Ankylosing hyperostosis [Forestier], site unspecified; G89.29 Other chronic pain; G47.33 Obstructive sleep apnea (adult) (pediatric); Z79.85 Long-term (current) use of injectable non-insulin antidiabetic drugs
CPT/HCPCS: 36415; 80048; 82948; 83735; 84439; 84443; 84480; 84484; 85025; 85027; 93005; 94762; 96361; 96374; A9270; C8929; G0378; G0379; J7030; Q9957